=== PATIENT | male | born 1995 ===

== ENCOUNTER 2016-12-18 11:42 | Emergency (ER) | payer OTHER ==
[2016-12-18 12:19] LABS: Hematocrit 47 % (42-52); Hemoglobin 15.3 g/dl (14.0-18.0); Mean Corpuscular HGB Conc 33 g/dl (31-36); Mean Corpuscular Hemoglobin 26 pg (27-31); Mean Corpuscular Volume 81 fL (80-94); Mean Platelet Volume 11 um3 (7.4-10.4); Red Blood Count 5.82 10^6/ul (4.0-5.4); Red Cell Distribution Width 13 % (10.5-15); White Blood Count 9.6 10^3/ul (3.5-10.8)
[2016-12-18 12:29] LABS: Urine Bacteria Absent (Absent); Urine Bilirubin Negative (Negative); Urine Glucose Negative (Negative); Urine Nitrite Negative (Negative)
[2016-12-18] MEDS ORDERED: Ondansetron INJ* 2 MG/ML VIAL IV ONE (12:29)
[2016-12-18] MEDS ORDERED: Morphine INJ* 4 MG/ML 1 ML CARPUJECT IV ONE (12:29)
[2016-12-18 12:38] LABS: ALT 10 U/L (7-52); AST 11 U/L (13-39); Albumin 4.7 g/dL (3.2-5.2); Alkaline Phosphatase 67 U/L (34-104); Amylase 44 U/L (29-103); Anion Gap 6 mmol/L (2-11); BUN/Creatinine Ratio 23.3 (8-20); Blood Urea Nitrogen 20 mg/dL (6-24); C Reactive Protein 17.55 mg/L (< 5.00); CO2 Carbon Dioxide 30 mmol/L (22-32); Calcium 9.9 mg/dL (8.6-10.3); Chloride 101 mmol/L (101-111); EGFR African American 144.4 (>60); EGFR Non-African American 112.3 (>60); Globulin 3.1 g/dL (2-4); Glucose 87 mg/dL (70-100); Lipase < 10 U/L (11.0-82.0); Potassium 3.8 mmol/L (3.5-5.0); Sodium 137 mmol/L (133-145); Total Protein 7.8 g/dL (6.4-8.9)
[2016-12-18] MEDS ORDERED: Iohexol 300* (CONTRAST) 10 ML SDV IV ONE (13:35)
--- NOTE | 2016-12-18 15:26 | RAD ---
INDICATION: Periumbilical abdominal pain for one week COMPARISON: None TECHNIQUE: Axial source images were obtained from the hemidiaphragms to the symphysis pubis following administration of oral and intravenous contrast. 81 mL Omnipaque 300 was utilized. Coronal and sagittal reconstructed images were acquired. Lung bases: The lung bases are clear. Liver: The liver is normal in size. There are no masses. There is no ductal dilatation. Gallbladder: There are no calcified gallstones. There is no evidence of wall thickening or pericholecystic fluid. Spleen: The spleen is normal in size. There are no masses. Pancreas: There is no focal pancreatic mass or ductal dilatation. Adrenal glands: There is no evidence of adrenal mass. Kidneys: The kidneys are normal in size and position. There are prompt nephrograms and there is prompt excretion bilaterally. There are no renal parenchymal masses. There is no evidence of nephrolithiasis. Adenopathy: There is no evidence of adenopathy by size criteria. Fluid collections: There is a localized, midline, periumbilical fluid collection measuring. 1.7 x 1.6 cm most consistent with a urachal cyst remnant. There is mild stranding of the adjacent fat and there is wall enhancement raising the possibility of an infected cyst remnant. The remainder of the urachal tract is well visualized on sagittal image 66/128 and is traced to the bladder. There is resultant tenting of the bladder Vessels:There are no significant atherosclerotic changes involving the aorta. There is no focal aneurysm. The iliac vessels are normal in caliber. The IVC appears normal. GI tract: There are no acute CT bowel findings. There is no obstruction. The stomach and small bowel appear normal. The lower GI tract is normal. The cecum, ileocecal valve, and terminal ileum appear normal. Pelvic organs: The prostate and seminal vesicles appear normal Bladder: There are no bladder masses. Abdominal and pelvic soft tissues: The extraperitoneal abdominal and pelvic soft tissues appear normal.. Osseous structures: There are no acute osseous findings. Other: None IMPRESSION: UMBILICAL REMNANT WITH PERIUMBILICAL CYST . THIS CYST MAY BE INFECTED.
[2016-12-18] MEDS ORDERED: Ketorolac INJ* 30 MG/ML 1 ML VIAL IV PUSH ONE (15:29)
[2016-12-18] MEDS ORDERED: cefTRIAXone VIAL(*) 1,000 MG in NS 0.9% 50 ML* 50 ML IVPB ONE (15:29)
--- NOTE | 2016-12-18 16:08 | ED ---
mary Eisenberg Timothy, scribed for Regan Sena MD on 12/18/16 at 1159 . Abdominal Pain/Male - HPI Summary HPI Summary: John Izaguirre is a 21 yo male presenting to [facility] with 8/10 umbilical abdominal pain for the past week, getting progressively worse. Pt states pain is sharp and constant, and he failed the jump rope test. He saw Dr. Mcnally, who requested Pt appear for a CT on 12/20/16, but the Pt states the pain has increased to the point he needed to present to [facility]. Pt states there was white discharge from his belly button, but now there appears to be dried blood there. He denies any nausea or vomiting, or any other Sx. He denies any pertinent MHx. - History of Current Complaint Chief Complaint: EDAbdPain Stated Complaint: ABD PAIN Time Seen by Provider: 12/18/16 11:51 Hx Obtained From: Patient Onset/Duration: Gradual Onset, Lasting Days, Still Present, Worse Since - now Timing: Constant, Lasting Days Severity Initially: Moderate Severity Currently: Moderate Pain Intensity: 8 Pain Scale Used: 0-10 Numeric Location: Umbilical Radiates: No Character: Sharp Associated Signs And Symptoms: Positive: Negative. Negative: Vomiting, Diarrhea - Allergies/Home Medications Allergies/Adverse Reactions: Allergies Allergy/AdvReac Type Severity Reaction Status Date / Time No Known Allergies Allergy Verified 12/18/16 11:48 Home Medications: Home Medications Ibuprofen TAB* [Motrin TAB* 600 MG] 600 mg PO Q4H PRN 12/18/16 [History Confirmed 12/18/16] PMH/Surg Hx/FS Hx/Imm Hx Previously Healthy: Yes Infectious Disease History: Yes Infectious Disease History: Denies: Traveled Outside the [place] in Last 30 Days - Family History Known Family History: Positive: None Negative: Cardiac Disease, Hypertension, Diabetes Review of Systems Constitutional: Negative Eyes: Negative ENT: Negative Cardiovascular: Negative Respiratory: Negative Positive: Abdominal Pain Genitourinary: Negative Musculoskeletal: Negative Skin: Negative Neurological: Negative Psychological: Normal All Other Systems Reviewed And Are Negative: Yes Physical Exam - Summary Physical Exam Summary: VITAL SIGNS: Reviewed. GENERAL: Patient is a well developed and nourished male who is lying comfortable in the stretcher. Patient is not in any acute respiratory distress. HEAD AND FACE: Normocephalic and atraumatic. EYES: PERRLA, EOMI x 2, No injected conjunctiva. EARS: Hearing grossly intact. Ear canals and tympanic membranes are WNL. MOUTH: Oropharynx within normal limits. NECK: Supple, trachea is midline, no adenopathy, no JVD. CHEST: Symmetric, no tenderness at palpation LUNGS: Clear to auscultation bilaterally. No wheezing or crackles. CVS: RRR,, S1 and S2 present, no murmurs or gallops appreciated. ABDOMEN: Soft, possitive periumbilical tenderness and RLQ tenderness. Positive discharge from the umbilicus. No signs of distention. Positive bowel sounds. No rebound no guarding, and no masses palpated. No abdominal bruit or pulsations. EXTREMITIES: FROM in all major joints, no edema, no cyanosis or clubbing. NEURO: Alert and oriented x 3. No acute neurological deficits. Speech is normal. SKIN: Dry and warm Triage Information Reviewed: Yes Vital Signs On Initial Exam: Initial Vitals Temp Pulse Resp BP Pulse Ox 97.9 F 96 16 106/53 100 12/18/16 11:44 12/18/16 11:44 12/18/16 11:44 12/18/16 11:44 12/18/16 11:44 Vital Signs Reviewed: Yes Diagnostics - Vital Signs Vital Signs Temp Pulse Resp BP Pulse Ox 12/18/16 11:44 97.9 F 96 16 106/53 100 - Laboratory Result Diagrams: 12/18/16 12:09 12/18/16 12:09 Lab Statement: Any lab studies that have been ordered have been reviewed, and results considered in the medical decision making process. - CT A/P CT Interpretation: Positive (See Comments) - IMPRESSION: UMBILICAL REMNANT WITH PERIUMBILICAL CYST . THIS CYST MAY BE INFECTED. CT Interpretation Completed By: Radiologist Re-Evaluation - Re-Evaluation First Eval Re-Evaluation Time: 16:03 Change: Unchanged Comment: pt is informed of results of imaging studies, as well as Dr. Mcnally's recommendation. Pt is agreeable with current course of Tx. Abdominal Pain Fem Course/Dx - Course Course Of Treatment: John Izaguirre is a 21 yo male presenting to [facility] with 8 /10 umbilical pain progressively getting worse for the past week, with whitish discharge from the navel. After review of his CT A/P (see documentation) and lab work, as well as discussion with Dr. Mcnally, he will be discharged home with appropriate instructions. Assessment/Plan: John Izaguirre is a 21 yo male presenting to [facility] with 8/10 umbilical abdominal pain for the past week, getting progressively worse. Pt states pain is sharp and constant, and he failed the jump rope test. He saw Dr. Mcnally, who requested Pt appear for a CT on 12/20/16, but the Pt states the pain has increased to the point he needed to present to [facility]. Pt states there was white discharge from his belly button, but now there appears to be dried blood there. He denies any nausea or vomiting, or any other Sx. He denies any pertinent MHx. Blood work wnl except for platelets 138, CRP 17.5, UA is negative. Abdominal and pelvic CT IMPRESSION: UMBILICAL REMNANT WITH PERIUMBILICAL CYST . THIS CYST MAY BE INFECTED. He was given Rocephin in the ED and Morphine and toradol for the pain. Discussed the case with Dali and he agrees with treatment and plan of discharging pation on PO antibiotics and discharged patient with f/u at his office. I discussed all the findings and test results with the patient. Patient was instructed to return to the emergency room immediately if any of the symptoms return or worsens. Plan of care was discussed with the patient and understands and agrees. All questions were answered at patient satisfaction. There were no further complaints or concerns. Lung exam before discharge: CTA B/L. Good air exchange. No wheezing or crackles heard. CVS: S1 and S2 present. No murmurs appreciated. Patient is alert and oriented x 3. Patient is hemodynamically stable. Patient will be discharged home with follow up diabetes territory manager in the next 2-3 days - Diagnoses Differential Diagnosis/HQI/PQRI: Appendicitis, Constipation, Other - Infected umbilicus, abscess, cellulitis Provider Diagnoses: Infected urachal cyst - Provider Notifications Discussed Care Of Patient With: 1535 - Dr. Mcnally (surgery) - Discussed Pt condition and current course of Tx. Recommends Pt be discharged with antibiotics if his pain can be controlled. Discharge - Discharge Plan Condition: Stable Disposition: HOME Prescriptions: Cephalexin CAP* [Keflex 500 CAP*] 500 mg PO QID #40 cap HYDROcodone/ACETAMIN 5-325 MG* [Biddle 5-325 TAB*] 1 tab PO Q6H PRN #12 tab MDD max 4 tabs /day PRN Reason: Pain Patient Education Materials: Wound Infection (ED) Referrals: CHACHO Mei [Primary Care Provider] - 2 Days Additional Instructions: Please follow up with your primary care physician regarding your visit to the emergency department today. Return to the emergency department with any new or recurring symptoms. The documentation as recorded by the mary becker Timothy accurately reflects the service I personally performed and the decisions made by me, Regan Sena MD.
[2016-12-18] MEDS ORDERED: Acetaminophen TAB* 325 MG PO ONE (17:18)
[2016-12-18 17:30] VITALS: BP 115/71
== END 2016-12-18 17:29 | disposition home or self-care (01) ==
LOC: ED 11:42
DX: Q64.4 Malformation of urachus (principal); R10.84 Generalized abdominal pain
CPT/HCPCS: 36415; 74177; 80053; 81003; 81015; 82150; 83605; 83690; 85025; 86140; 87070; 87205; 87640; 87641; 96374; 96375; 99283; A9270-GY; J0696; J1885; J2270; J2405; Q9967

== ENCOUNTER 2016-12-21 11:06 | Day surgery (SDC) | payer OTHER ==
[~2016-12-21 11:06] MED LIST: Buffered Lidocaine 1% SYR 3ML* 3 ML/SYR SYRINGE INTRADERM ONE; Famotidine IV* 10 MG/ML 2 ML (20 mg) IV ONE; Midazolam* 1 MG/ML 5 ML VIAL (5 MG) ONE; fentaNYL* 50 MCG/ML 2 ML VIAL (100 MCG VIAL) ONE
[2016-12-21] MEDS ORDERED: Famotidine IV* 10 MG/ML 2 ML (20 mg) ONE (11:13)
[2016-12-21] MEDS ORDERED: Ondansetron INJ* 2 MG/ML VIAL ONE (11:26)
[2016-12-21] MEDS ORDERED: Propofol* 10 MG/ML 20 ML BTL IV PUSH ONE (11:26)
[2016-12-21] MEDS ORDERED: Ketorolac INJ* 30 MG/ML 1 ML VIAL ONE (11:26)
[2016-12-21] MEDS ORDERED: Lidocaine 2% PF * 5 ML VIAL ONE (11:26)
[2016-12-21] MEDS ORDERED: Bupivacaine 0.5% SDV PF* 30 ML VIAL ONE (12:44)
[2016-12-21] MEDS ORDERED: KETAMINE HCL* 50 MG/ML 10 ML VIAL ONE (12:50)
[2016-12-21] MEDS ORDERED: DiMENhydriNATE IV* 50 MG/ML VIAL IV PUSH PRN (13:08)
[2016-12-21] MEDS ORDERED: oxyCODONE/Acetamin 5/325 MG* TAB PO PRN (13:08)
[2016-12-21] MEDS ORDERED: HYDROmorphone INJ* 1 MG/ML CARPUJECT SYRINGE IV PRN (13:08)
--- NOTE | 2016-12-21 13:19 | SURGPN ---
Brief Operative Note - Surgery Procedures: Pre-OP Diagnoses: deep umbilical abscess Post-op Diagnosis: same Procedure: Incision and drainage and debridement of deep umbilical abscess Surgeon: Dali Asst: none Anethesia: local RAJENDRA Lipscomb EBL: minimal IVF: crystalloid Specimen: 1. fluid for Cx 2. foreign debris vs sebum Drains: none
[2016-12-21 14:41] VITALS: BP 111/75
--- NOTE | 2016-12-22 04:04 | OP ---
DATE OF OPERATION: 12/21/16 [facility] SYSTEM DATE OF : 89 SURGEON: Shin Mcnally MD CHIEF NUCLEAR MEDICINE TECHNOLOGIST: None. ANESTHESIOLOGIST: Justa Lipscomb MD ANESTHESIA: Local MAC anesthesia. PRE-OP DIAGNOSIS: Deep umbilical abscess. POST-OP DIAGNOSIS: Deep umbilical abscess. OPERATIVE PROCEDURE: Incision and drainage and debridement of deep umbilical abscess. ESTIMATED BLOOD LOSS: Minimal blood loss. FLUIDS: Minimal crystalloid fluid given. SPECIMENS: 1. Fluid for culture and sensitivity. 2. Debris consistent with either foreign body or sebum sent in formalin. The patient tolerated the procedure well. The wound was packed and not closed primarily and the patient was transferred to the PACU in stable condition. INDICATIONS: Mr. Izaguirre is a 21-year-old gentleman with a draining umbilical lesion of unclear etiology and no evidence of superficial infection; however, on CT scan as part of his workup, he was noted to have a fluid collection that was either consistent with a urachal cyst remnant or some other cystic structure. Due to the patient's persistent pain, the decision was made to incise the area and drain any fluid out. I outlined the details of the procedure with him yesterday going over the risks, benefits, and alternatives. The patient agreed. We spoke of the possible complication, which included but not limited to bleeding, infection, need for additional procedures, possible communication with bladder, possible umbilical hernia. The patient agreed and consent was signed this morning. DESCRIPTION OF PROCEDURE: The patient was taken to the operating room and placed on the operating table in the supine position. Sequential devices were placed on bilateral lower extremities. Gentle sedation was given. The patient' s abdomen was prepped with Betadine and draped. A time-out was performed. Injection of Marcaine around the umbilicus was carried out. Review of the deep umbilicus showed an area of scant purulent drainage. Injection of lidocaine along this site was performed and we incised the skin extending from the sinus tract superiorly and inferiorly. Copious thick pus was encountered. This was cultured. We entered into the cavity and debrided it with the inclusion of one large chunk of debris that could have been sebum. This was linear in shape. We irrigated the wound copiously. Additional debridement was carried out until the cavity was clear. I was never able to get my finger into the cavity itself , but could place a Kita clamp and the wound was then packed with 1/4-inch Iodoform packing followed by gauze and paper tape. The patient tolerated the procedure well. CC: [facility]* [id number]/[facility] #: [id number] LEN
== END 2016-12-21 15:05 | disposition home or self-care (01) ==
LOC: OR 11:06
PROVIDERS: ATTEND Surgery
DX: L02.216 Cutaneous abscess of umbilicus (principal)
CPT/HCPCS: 87015; 87070; 87073; 87076; 87077; 87102; 87116; 87205; 87206; 87640; 87641; 88304; J1885; J2250; J2405; J2704; J3010